=== PATIENT | female | born 1945 | race Caucasian/White ===

== ENCOUNTER 2016-06-28 19:32 | Inpatient (IN) | payer SELFPAY ==
[~2016-06-28] VITALS: Ht 152.4 cm; Wt 54.6 kg
[2016-06-28] MEDS ORDERED: SOD CHLORIDE 0.9% 500 ML IV STA (22:41)
[2016-06-28] MEDS ORDERED: ONDANSETRON 4 MG INJ IV STA (22:41)
[2016-06-28] MEDS ORDERED: morphine 4 MG/ML VIAL IV STA (22:41)
[2016-06-28 23:08] LABS: BASOPHILS % 0.4 % (0.0-2.0); EOSINOPHILS % 0.8 % (0.0-7.0); HEMATOCRIT 43.2 % (37.0-47.0); HEMOGLOBIN 14.6 g/dl (12.0-16.0); LYMPHOCYTES # 1.9 10^3/ul (0.8-2.9); LYMPHOCYTES % 34.1 % (15.0-51.0); MEAN CORPUSCULAR HEMOGLOBIN 30.1 pg (29.0-33.0); MEAN CORPUSCULAR HGB CONC 33.7 g/dl (32.0-37.0); MEAN CORPUSCULAR VOLUME 89.1 fl (82.0-101.0); MEAN PLATELET VOLUME 8.4 fl (7.4-10.4); MONOCYTE # 0.5 10^3/ul (0.3-0.9); MONOCYTES % 8.2 % (0.0-11.0); NEUTROPHIL # 3.2 10^3/ul (1.6-7.5); NEUTROPHILS % 56.5 % (39.0-77.0); PLATELET COUNT 244 10^3/UL (140-440); RED BLOOD COUNT 4.85 10^6/ul (4.20-5.40); RED CELL DISTRIBUTION WIDTH 13.4 % (11.5-14.5); UNCORRECTED WBC 5.7 10^3/ul (4.8-10.8); WHITE BLOOD COUNT 5.7 10^3/ul (4.8-10.8)
[2016-06-28 23:09] LABS: CONDITION 1
[2016-06-28 23:16] LABS: ALBUMIN 4.7 g/dl (3.3-4.9); CHLORIDE 102 mmol/L (97-110); INR 0.91; PROTIME 12.2 Sec (12.2-14.2); SODIUM 145 mmol/L (135-144)
[2016-06-28 23:17] LABS: PARTIAL THROMBOPLASTIN TIME 30.1 Sec (25.0-35.0)
[2016-06-28 23:18] LABS: CREATININE 0.66 mg/dl (0.44-1.00)
[2016-06-28 23:19] LABS: ALANINE AMINOTRANSFERASE 25 IU/L (13-69); ALBUMIN/GLOBULIN RATIO 1.42; ALKALINE PHOSPHATASE 72 IU/L (42-121); ANION GAP 18 (8-16); ASPARTATE AMINO TRANSFERASE 34 IU/L (15-46); BLOOD UREA NITROGEN 12 mg/dl (7-20); CALCIUM 9.1 mg/dl (8.4-10.2); CARBON DIOXIDE 29 mmol/L (21-31); GLUCOSE 98 mg/dl (70-220)
[2016-06-28 23:27] LABS: B-TYPE NATRIURETIC PEPTIDE 203 PG/ML (0-125)
[2016-06-28 23:31] LABS: TROPONIN-I < 0.012 ng/ml (0.00-0.12)
[2016-06-29] VITALS (9 sets, daily range): BP systolic 120–150; BP diastolic 67–83; PULSE 71–90; RESP 18–20; TEMP 98; Ht 152.4 cm; Wt 54.6 kg
--- NOTE | 2016-06-29 01:33 | RADRPT ---
PROCEDURE: XR Chest. CLINICAL INDICATION: Chest pain. TECHNIQUE: AP Portable chest. COMPARISON: No pertinent prior examinations were submitted for comparison. FINDINGS: The cardiomediastinal silhouette is normal. The lungs are clear. The osseous structures are unrema rkable. IMPRESSION: No acute findings. RPTAT: HIKT .Marcos Barrios MD, MD Date Time Electronically viewed and signed by .Marcos Barrios MD, MD on 06/29/2016 01:33 .T/
--- NOTE | 2016-06-29 02:06 | ERA ---
ER Documentation Chief Complaint Date/Time DATE: 06/29/16 TIME: 02:05 Chief Complaint CP ON AND OFF FOR 7 DAYS HPI There is a 70-year-old female, no chest pain for the past 3 days and aggressively worse. Denies any fevers or chills. Denies any nausea vomiting. Denies any other current complaints. Pain is mild to moderate in intensity with no exacerbating or relieving factors. ROS All systems reviewed and are negative except as per history of present illness. PMhx/Soc History of Surgery: Yes (KNEE SX) Anesthesia Reaction: No Hx Neurological Disorder: No Hx Respiratory Disorders: No Hx Cardiac Disorders: No Hx Miscellaneous Medical Probl: Yes (HTN) Hx Alcohol Use: No Hx Substance Use: No Hx Tobacco Use: No Smoking Status: Never smoker Physical Exam Vitals Vital Signs Date Time Temp Pulse Resp B/P Pulse Ox O2 Delivery O2 Flow Rate FiO2 06/29/16 01:37 77 20 112/74 100 Room Air 06/28/16 23:04 82 16 133/85 100 Room Air 06/28/16 19:54 96.5 78 18 160/82 97 Physical Exam Const: [] Head: Atraumatic Eyes: Normal Conjunctiva ENT: Normal External Ears, Nose and Mouth. Neck: Full range of motion..~ No meningismus. Resp: Clear to auscultation bilaterally Cardio: Regular rate and rhythm, no murmurs Abd: Soft, non tender, non distended. Normal bowel sounds Skin: No petechiae or rashes Back: No midline or flank tenderness Ext: No cyanosis, or edema Neur: Awake and alert Psych: Normal Mood and Affect Result Diagram: 06/28/16225306/28/162253 Results 24 hrs Laboratory Tests Test 06/28/16 22:54 Activated Partial Thromboplast Time 30.1Sec Alanine Aminotransferase (ALT/SGPT) 25IU/L Albumin 4.7g/dl Albumin/Globulin Ratio 1.42 Alkaline Phosphatase 72IU/L Anion Gap 18 Aspartate Amino Transf (AST/SGOT) 34IU/L B-Type Natriuretic Peptide 203PG/ML Basophils # 0.010^3/ul Basophils % 0.4% Blood Urea Nitrogen 12mg/dl Calcium Level 9.1mg/dl Carbon Dioxide Level 29mmol/L Chloride Level 102mmol/L Creatinine 0.66mg/dl Direct Bilirubin 0.00mg/dl Eosinophils # 0.010^3/ul Eosinophils % 0.8% Globulin 3.30g/dl Glucose Level 98mg/dl Hematocrit 43.2% Hemoglobin 14.6g/dl INR International Normalized Ratio 0.91 Indirect Bilirubin 0.0mg/dl Lymphocytes # 1.910^3/ul Lymphocytes % 34.1% Mean Corpuscular Hemoglobin 30.1pg Mean Corpuscular Hemoglobin Concent 33.7g/dl Mean Corpuscular Volume 89.1fl Mean Platelet Volume 8.4fl Monocytes # 0.510^3/ul Monocytes % 8.2% Neutrophils # 3.210^3/ul Neutrophils % 56.5% Nucleated Red Blood Cells # 0.010^3/ul Nucleated Red Blood Cells % 0.0/100WBC Platelet Count 05580^3/UL Potassium Level 4.0mmol/L Prothrombin Time 12.2Sec Prothrombin Time Ratio 1.0 Red Blood Count 4.8510^6/ul Red Cell Distribution Width 13.4% Sodium Level 145mmol/L Total Bilirubin 0.0mg/dl Total Protein 8.0g/dl Troponin I < 0.012ng/ml White Blood Count 5.710^3/ul Current Medications Medications (Trade) Dose Ordered Sig/Darrian Route PRN Reason Start Time Stop Time Status Last Admin Dose Admin Sodium Chloride (NS) 500 ml @ 500 mls/hr Q1H STAT IV 06/28/16 22:41 06/28/16 23:40 DC 06/28/16 23:00 Morphine Sulfate (morphine) 4 mg ONCE STAT IV 06/28/16 22:41 06/28/16 22:42 DC 06/28/16 23:00 Ondansetron HCl (Zofran Inj) 4 mg ONCE STAT IV 06/28/16 22:41 06/28/16 22:42 DC 06/28/16 23:00 Procedures/MDM EKG: Rate/Rhythm: [Normal Sinus Rhythm] QRS, ST, T-waves: [No changes consistent w/ acute ischemia] Impression: [No evidence of ischemia or arrhythmia] Chest X-ray 1V Interpreted by me: Soft Tissue: No acute abnormalities Bones: No acute abnormalities Mediastinum/Cardiac Silhouette/Lungs: [No acute abnormalities] Patient's symptoms are concerning for cardiac cause will require inpatient workup and continuous monitoring. Further w/u for ischemia, arrhythmia, PE or dissection will be deferred to the inpatient team. Accepting Care Team: Current data and ongoing care discussed. Time: 1:30 AM Primary Provider: Hospitalist Consulting: [XOXOXO] Outstanding Data: none Departure Diagnosis: Primary Impression: Chest pain Qualified Code: I20.9 - Ischemic chest pain Condition: Serious SUKI IRWIN Jun 29, 2016 02:06
[2016-06-29] MEDS ORDERED: ONDANSETRON 4 MG INJ IV PRN (07:00)
[2016-06-29] MEDS ORDERED: NITROGLYCERIN (SL) 0.4 MG TAB SL PRN (07:00)
[2016-06-29] MEDS ORDERED: ACETAMINOPHEN 325 MG TAB PO PRN (07:00)
[2016-06-29] MEDS ORDERED: NACL 0.9% 3 ML SYG IV SCH (07:00)
[2016-06-29] MEDS ORDERED: morphine 2 MG INJ IV PRN (07:00)
[2016-06-29] MEDS ORDERED: ALBUTEROL/IPRATROPIUM (NEB) 3 ML AMP HHN PRN (07:00)
[2016-06-29 07:33] LABS: CREATINE KINASE 58 IU/L (23-200)
[2016-06-29 07:39] LABS: CK-MB 1.11 ng/ml (0.0-2.4)
[2016-06-29 07:46] LABS: TROPONIN-I < 0.012 ng/ml (0.00-0.12)
--- NOTE | 2016-06-29 07:56 | HP ---
DATE OF ADMISSION: 06/29/2016 TIME SEEN: 5 a.m. CHIEF COMPLAINT: Chest pain. HISTORY OF PRESENT ILLNESS: The patient is a 70-year-old female with no significant past medical hi story who presented to the emergency department with a chief complaint of chest pain. Chest pain is localized in the mid chest area and also the left side with radiation to the left arm. Described a s sharp and has been going on for the past several days and has been progressively getting worse. S he reported associated shortness of breath. When she presented to the ER, her vitals were stable. Laboratory results showed a sodium of 145. O therwise, CBC and CMP are within normal limits. BNP 203. First troponin negative. Chest x-ray lonnie ws no acute findings. She has been given Zofran, morphine, and normal saline IV fluid. The patient denied any fever, chills, nausea, vomiting, diaphoresis REVIEW OF SYSTEMS: A 12-point review of systems was performed and negative except as mentioned in H PI. PAST MEDICAL HISTORY: As per HPI. PAST SURGICAL HISTORY: She had surgery on her lower extremities. ALLERGIES: NO KNOWN DRUG ALLERGIES. HOME MEDICATIONS: None. PHYSICAL EXAMINATION VITAL SIGNS: Stable. GENERAL: No acute distress, looks comfortable. HEENT: No obvious head deformity. Pupils are reactive to light. Extraocular muscles intact. CARDIOVASCULAR: Regular rate and rhythm with no extra sounds. LUNGS: Clear. ABDOMEN: Soft, nontender, nondistended. Positive bowel sounds. EXTREMITIES: No edema. NEUROLOGIC: No focal deficits. LABORATORY: Pertinent positives as mentioned in the HPI. IMAGING: Chest x-ray with no acute findings. IMPRESSION 1. Chest pain, rule out acute coronary syndrome. 2. Mild hypernatremia. PLAN: Continue telemetry monitoring. She will be placed on beta marquise, aspirin, oxygen with as n eeded nitro morphine. Will check A1c, fasting lipids, and TSH. She will obtain a 2-D echo. We will place a cardiology consult as needed. Further workup and management per clinical course. Dictated By: SUKI LARSON/ANA MARIA Conf#: [id number] DID#: [id number]
[2016-06-29] MEDS ORDERED: INFLUENZA VIRUS VACCINE 0.5 ML SYG IM* ONE (09:00)
[2016-06-29] MEDS ORDERED: ENOXAPARIN 40 MG/0.4 ML SYG SC SCH (09:00)
[2016-06-29] MEDS ORDERED: ASPIRIN 81 MG TAB PO SCH (09:00)
--- NOTE | 2016-06-29 11:24 | CONS ---
Date/Time of Note Date/Time of Note DATE: 06/29/16 TIME: 11:17 Assessment/Plan Assessment/Plan Chief Complaint/Hosp Course Atypical chest pain: Unlikely to be cardiac based on history. Trops and EKg unremarkable. She does have some risk factors including age and HTN and may benefit from stress testing. She prefers inpatient workup. HTN: controlled off meds -will try to arrange stress MPI this afternoon vs tomorrow am -if stress test negative, ok for discharge Problems: Consultation Date/Type/Reason Admit Date/Time Jun 29, 2016 at 04:52 Date of Consultation: Jun 29, 2016 Type of Consultation: Cardiology Reason for Consultation Chest pain Referring Provider: RALEIGH BEAUCHAMP of Present Illness 70 yo F with a h/o HTN who presented with chest pain for which cardiology is consulted. The patient notes that she started having chest pain 4 days ago which she describes as sharp and constant. The pain initially woke her from her sleep. She feels better if she takes a deep breath and also if she walks around. No prior cardiac history. No tobacco, alcohol, drug use. Currently asymptomatic. (interpretation is obtained via an spanish medical interpreter). per HPI Past Medical History HTN Social History Smoking Status: Never smoker Exam/Review of Systems Vital Signs Vitals Vital Signs Date Time Temp Pulse Resp B/P Pulse Ox O2 Delivery O2 Flow Rate FiO2 06/29/16 09:03 75 06/29/16 07:47 98.1 18 132/83 100 06/29/16 04:55 Room Air Intake and Output 06/28/16 06/28/16 06/29/16 15:00 23:00 07:00 Intake Total 500 ml Balance 500 ml Exam Constitutional: alert, oriented Psych: no complaints Head: atraumatic, normocephalic Eyes: nl conjunctiva, nl lids Neck: supple, No jvd Respiratory: clear to auscultation, No crackles/rales, No diminished breath sounds Cardiovascular: nl pulses, regular rate and rhythm, No systolic murmur Gastrointestinal: non-tender, soft Extremities: normal pulses Neurological: nl mental status, nl speech Results EKG: sinus, no ST/T changes Result Diagram: 06/28/16 2254 06/28/16 225 Results 24 hrs Laboratory Tests Test 06/28/16 22:54 06/29/16 06:00 Activated Partial Thromboplast Time 30.1 Alanine Aminotransferase (ALT/SGPT) 25 Albumin 4.7 Albumin/Globulin Ratio 1.42 Alkaline Phosphatase 72 Anion Gap 18 H Aspartate Amino Transf (AST/SGOT) 34 B-Type Natriuretic Peptide 203 H Basophils # 0.0 Basophils % 0.4 Blood Urea Nitrogen 12 Calcium Level 9.1 Carbon Dioxide Level 29 Chloride Level 102 Creatinine 0.66 Direct Bilirubin 0.00 Eosinophils # 0.0 Eosinophils % 0.8 Globulin 3.30 H Glucose Level 98 Hematocrit 43.2 Hemoglobin 14.6 INR International Normalized Ratio 0.91 Indirect Bilirubin 0.0 Lymphocytes # 1.9 Lymphocytes % 34.1 Mean Corpuscular Hemoglobin 30.1 Mean Corpuscular Hemoglobin Concent 33.7 Mean Corpuscular Volume 89.1 Mean Platelet Volume 8.4 Monocytes # 0.5 Monocytes % 8.2 Neutrophils # 3.2 Neutrophils % 56.5 Nucleated Red Blood Cells # 0.0 Nucleated Red Blood Cells % 0.0 Platelet Count 244 Potassium Level 4.0 Prothrombin Time 12.2 Prothrombin Time Ratio 1.0 Red Blood Count 4.85 Red Cell Distribution Width 13.4 Sodium Level 145 H Total Bilirubin 0.0 L Total Protein 8.0 Troponin I < 0.012 < 0.012 White Blood Count 5.7 Creatine Kinase 58 Creatine Kinase Index 1.9 Creatinine Kinase MB (Mass) 1.11 Medications Medications Current Medications Ondansetron HCl (Zofran Inj) 4 mg Q6H PRN IV NAUSEA AND/OR VOMITING; Start at 07:00 Aspirin (Aspirin) 81 mg DAILY PO Last administered on 06/29/16 08:17; Admin Dose 81 MG; Start 06/29/16 at 09:00 Nitroglycerin (Nitroglycerin (Sl Tab) 0.4 Mg) 1 tab Q5M PRN SL CHEST PAIN; Start 06/29/16 at 07:00 Acetaminophen (Tylenol Tab) 650 mg Q6H PRN PO PAIN LEVEL 1-3 OR FEVER; Start at 07:00 Morphine Sulfate (morphine) 2 mg Q4H PRN IV PAIN LEVEL 7-10; Start 06/29/16 at 07:00 Enoxaparin Sodium (Lovenox) 40 mg DAILY SC Last administered on 06/29/16 08:18 ; Admin Dose 40 MG; Start 06/29/16 at 09:00 AJAY LIGHT Jun 29, 2016 11:24
[2016-06-29 11:36] LABS: CREATINE KINASE 72 IU/L (23-200)
[2016-06-29 11:46] LABS: CK-MB 1.26 ng/ml (0.0-2.4)
[2016-06-29 12:04] LABS: TROPONIN-I < 0.012 ng/ml (0.00-0.12)
[2016-06-29] MEDS ORDERED: REGADENOSON 0.4 MG/5 ML SYG ONE (14:45)
--- NOTE | 2016-06-29 15:30 | RADRPT ---
Echocardiogram Report Patient Name: FENG MEDEROS Gender: Female Date: 1945 Study Date: 29-Jun-2016 Manager Review: Alessandra Pang [facility] Location: [id number] Ref. Physician: SUKI AYOUB Quality: Good Procedures: Transthoracic echocardiogram with complete 2D, M-Mode, and doppler examination. Indications: Chest Pain. 2D/M Mode Doppler Measurement Value Normal Ranges Measurement Value Normal Ranges LVIDd 2D 4.9 3.5 - 5.6 cm AV Peak Anjel 1.2 m/sec LVIDs 2D 3.4 2.1 - 4.1 cm AV Peak PG 6.0 mmHg FS 2D 31.0 % AI Peak PG 79.0 mmHg LVPWd 2D 0.9 0.6 - 1.1 cm AI Peak Anjel 4.4 m/sec IVSd 2D 0.8 0.6 - 1.1 cm AI PHT 423.0 msec IVS/LVPW 2D 0.9 LVOT Peak Anjel 0.9 m/sec AoR Diam 2D 2.9 2.0 - 3.7 cm LVOT Peak PG 3.0 mmHg LA/Ao 2D 1 0 - 1 MV E Peak Anjel 0.6 m/sec EDV 2D 121.0 cm3 MV A Peak Anjel 0.9 m/sec ESV 2D 39.7 cm3 MV E/A 0.6 LA Dimen 2D 3.2 2.3 - 4.0 cm MV Decel Time 215 msec MV E/A 0.6 TR Peak Anjel 2.3 m/sec TR Peak PG 22.0 mmHg RVSP 25.0 mmHg Findings Left Ventricle: Normal left ventricular systolic function. Normal left ventricular cavity size. Normal left ventricular wall thickness. Ejection fraction is visually estimated at 55 %. Tissue Doppler/Mitral Doppler indices are consistent with impaired relaxation (Stage I diastolic dysfunction). Right Ventricle: Normal right ventricular size. Normal right ventricular systolic function. Left Atrium: There is mild enlargement of left atrium. Right Atrium: The right atrium is normal in size. Mitral Valve: Mild mitral annular calcification. Mild to moderate mitral valve regurgitation. Aortic Valve: Aortic cusps appear mildly calcified. Mild to moderate aortic valve regurgitation. Tricuspid Valve: Normal appearance of the tricuspid valve. Estimated peak PA systolic pressure 25 mmHg. There is mild tricuspid regurgitation. Pulmonic Valve: Normal pulmonic valve appearance. Pericardium: Normal pericardium with no significant pericardial effusion. Aorta: Normal aortic root. IVC: Normal size and normal respiratory collapse consistent with normal right atrial pressure. Conclusions 1.Normal left ventricular systolic function. Normal left ventricular cavity size. Normal left ventricular wall thickness. Ejection fraction is visually estimated at 55 %. Tissue Doppler/Mitral Doppler indices are consistent with impaired relaxation (Stage I diastolic dysfunction). 2.Mild to moderate aortic valve regurgitation. 3.Mild to moderate mitral valve regurgitation. 4.Estimated peak PA systolic pressure 25 mmHg based on RA pressure of 3 mmHg. Electronically Signed By: Jorge L Alvarez 29-Jun-2016 15:30:16 -0800 Patient Name: FENG MEDEROS Study Date: 29-Jun-2016 [id number]
--- NOTE | 2016-06-29 16:07 | RADRPT ---
PROCEDURE: Lexiscan myocardial perfusion study CLINICAL INDICATION: 70 -year-old patient complaining of chest pain. TECHNIQUE: Lexiscan 0.4 mg intravenously separate acquisition gated myocardial perfusion SPECT usi ng Tc 99m Myoview 27.6 mCi intravenously at stress and Tc-99m Myoview, 9.3 mCi intravenously at rest was performed using the rest/stress sequence. Poststress Myoview SPECT images were obtained in the supine position. COMPARISON: No prior studies. FINDINGS: Perfusion images reveal no evidence of perfusion defects. Lexiscan post stress gated SPECT images demonstrate no wall motion abnormalities. IMPRESSION: 1. Normal study with no evidence of perfusion defects or wall motion abnormalities. 2. The left ventricle ejection fraction at stress is 68%. A call report was made to Dr. Alvarez at 4:04 p.m. on June 29, 2016. RPTAT: HH .Hallie De Leon MD, Date Time Electronically viewed and signed by .Hallie De Leon MD, on 06/29/2016 16:06 .L/
--- NOTE | 2016-06-29 16:13 | OPR ---
Date/Time of Note Date/Time of Note DATE: 06/29/16 TIME: 16:11 Operative Report Free Text/Dictation Nuclear medicine myocardial perfusion imaging: Date: 06/29/2016 Indication: Atypical chest pain with CAD risk factors After informed consent, the patient was given IV Lexiscan. She was monitored for a total of 8 minutes post-infusion without any sings of arrhythmias. Patient had mild SOB but no chest pain or EKG changes. Please refer to separate note for imaging results. AJAY LIGHT Jun 29, 2016 16:13
--- NOTE | 2016-06-29 16:24 | PDOCDIS ---
Discharge Instructions CONDITION Patient Condition: Good HOME CARE INSTRUCTIONS: Diet Instructions: Regular ACTIVITY: Activity Restrictions: No Restrictions FOLLOW UP/APPOINTMENTS Appointments F/U WITH A PCP IN 1-2 WEEKS RALEIGH BEAUCHAMP Jun 29, 2016 16:24
--- NOTE | 2016-06-29 17:47 | DS ---
DATE OF ADMISSION: 06/29/2016 DATE OF DISCHARGE: 06/29/2016 DISCHARGE DIAGNOSES: 1. Chest pain. Acute coronary syndrome ruled out. 2. Mild hypernatremia. HOSPITAL COURSE: The patient is a 70-year-old female with no medical history. The patient presents with chest pain. The patient was seen by cardiology. The patient had a nuclear stress test that w as normal. EF at stress was 68%. The patient's other labs were stable. Troponins were negative x3 . The patient did have some mild hypernatremia with sodium 145, but once again, it was mild. No fu rther intervention necessary. The patient received IV fluids. The patient was felt to be stable fo r discharge per cardiology and they discharged. The patient's vitals, labs, physical exam were stab le. She had no acute complaints and denied any chest pain on the day of discharge. Her questions w ere answered. CONDITION ON DISCHARGE: Stable. DISPOSITION: To home. MEDICATIONS: The patient has no reported home medications. No new medications prescribed. FOLLOWUP: The patient will need to follow up with her PCP in 1 to 2 weeks. Greater 30 minutes were spent coordinating discharge of patient. Dictated By: RALEIGH BEAUCHAMP MD BS/NTS Conf#: [id number] DID#: [id number]
== END 2016-06-29 17:15 | disposition home or self-care (01) | DRG 313 ==
LOC: EDBD 19:32 → E/R 19:32 → TEL 06-29 04:52 → E/R 06-29 05:10 → TEL 06-29 05:41 → E/R 06-29 05:45 → TEL 06-29 05:49
PROVIDERS: ADMIT Internal Medicine; ATTEND Internal Medicine
DX: R07.9 Chest pain, unspecified (principal); E87.0 Hyperosmolality and hypernatremia
CPT/HCPCS: 36415; 71010; 78452; 80053; 82550; 82553; 83880; 84484; 85025; 85610; 85730; 90686; 93005; 93017; 93306; 96361; 96374; 96375; A9500; A9505; J1650; J2270; J2405; J2785; J7040